=== PATIENT | female | born 1955 | race Asian ===

== ENCOUNTER 2024-03-02 20:14 | Emergency (ER) | payer BC, MEDICARE ==
[~2024-03-02] VITALS: Ht 154.9 cm; Wt 47.3 kg
[~2024-03-02 20:14] MED LIST: GLIP5TAB16 PO; LOSA-382 PO; METF-1211 PO
[2024-03-02 20:37] VITALS: BP 115/49; PULSE 96; RESP 16; TEMP 98.7
[2024-03-02] MEDS ORDERED: PYRA500T33 PO (20:51)
[2024-03-02] MEDS ORDERED: VIT1CAPS46 PO (20:51)
[2024-03-02] MEDS ORDERED: ISON300 PO (20:51)
[2024-03-02] MEDS ORDERED: RIFA300C63 PO (20:51)
[2024-03-02] MEDS ORDERED: ETHA100 PO (20:51)
[2024-03-02] MEDS: DEXAMETHASONE SOD PHOS 4 MG/ML 5 ML VIAL IM ONE (22:42)
[2024-03-02] MEDS: DiphenhydrAMINE HCL 25 MG CAPSULE PO ONE (22:42)
[2024-03-02] MEDS: FAMOTIDINE 20 MG TABLET PO ONE (22:42)
[2024-03-02] MEDS ORDERED: FAMO20 PO (22:45)
[2024-03-02] MEDS ORDERED: DIPH25CA85 PO (22:45)
[2024-03-02] MEDS ORDERED: METH4TAB3 PO (22:45)
== END 2024-03-02 23:40 | disposition home or self-care (01) ==
LOC: EMS 20:14
DX: R21 Rash and other nonspecific skin eruption (principal); T36.6X5A Adverse effect of rifampicins, initial encounter; Y92.89 Other specified places as the place of occurrence of the external cause
CPT/HCPCS: 99283; 82962; 96372; J1100